=== PATIENT | male | born 1960 | race Asian ===

== ENCOUNTER 2017-09-14 06:57 | Observation (INO) | payer MEDICARE, OTHER ==
[2017-09-14 08:23] LABS: ADD MAN DIFF? NO
[2017-09-14 08:28] LABS: BASOPHILS % 0.4 % (0.0-2.0); EOSINOPHILS # 0.2 10^3/ul (0.0-0.5); EOSINOPHILS % 2.5 % (0.0-7.0); HEMATOCRIT 35.2 % (42.0-52.0); HEMOGLOBIN 11.8 g/dl (14.0-18.0); LYMPHOCYTES # 1.5 10^3/ul (0.8-2.9); LYMPHOCYTES % 21.3 % (15.0-51.0); MEAN CORPUSCULAR HEMOGLOBIN 28.9 pg (29.0-33.0); MEAN CORPUSCULAR HGB CONC 33.5 g/dl (32.0-37.0); MEAN CORPUSCULAR VOLUME 86.1 fl (82.0-101.0); MEAN PLATELET VOLUME 9.5 fl (7.4-10.4); MONOCYTE # 0.7 10^3/ul (0.3-0.9); MONOCYTES % 10.6 % (0.0-11.0); NEUTROPHIL # 4.5 10^3/ul (1.6-7.5); NEUTROPHILS % 64.8 % (39.0-77.0); PLATELET COUNT 186 10^3/UL (140-415); RED BLOOD COUNT 4.09 10^6/ul (4.70-6.10); RED CELL DISTRIBUTION WIDTH 14.2 % (11.5-14.5)
[2017-09-14 08:28] LABS: WHITE BLOOD COUNT 6.9 10^3/ul (4.8-10.8)
[2017-09-14 08:44] LABS: ANION GAP 15 (8-16); CARBON DIOXIDE 34 mmol/L (21-31); CHLORIDE 98 mmol/L (97-110); GLUCOSE 86 mg/dl (70-220)
[2017-09-14 08:46] LABS: BLOOD UREA NITROGEN 22 mg/dl (7-20); CALCIUM 9.3 mg/dl (8.4-10.2); CREATININE 4.43 mg/dl (0.61-1.24); POTASSIUM 4.7 mmol/L (3.5-5.1); SODIUM 142 mmol/L (135-144)
[2017-09-14] MEDS ORDERED: MIDAZOLAM 1 MG/ML 2 ML INJ (09:17)
[2017-09-14] MEDS ORDERED: FENTAnyl 50 MCG/ML VIAL (09:17)
[2017-09-14] MEDS ORDERED: VERAPAMIL 5 MG INJ (09:22)
[2017-09-14] MEDS ORDERED: NITROGLYCERIN (IC) 100 MCG/ML INJ ×2 (09:22→10:26)
[2017-09-14] MEDS ORDERED: HEPARIN 1000 UNITS/ML 10 ML INJ (09:22)
[2017-09-14] MEDS ORDERED: LIDOCAINE 1% (MDV) 20 ML INJ (09:22)
[2017-09-14 09:45] LABS: INR 0.93; PROTIME 12.6 Sec (11.9-14.9)
[2017-09-14 09:46] LABS: PARTIAL THROMBOPLASTIN TIME 33.1 Sec (25.0-35.0)
[2017-09-14] MEDS ORDERED: ASPIRIN 325 MG TAB (09:49)
[2017-09-14] MEDS ORDERED: CLOPIDOGREL 300 MG TAB (09:49)
[2017-09-14] MEDS ORDERED: IOHEXOL 350MG/ML 50 ML BTL (10:41)
[2017-09-14] MEDS ORDERED: IODIXANOL LOCM 100 ML BTL (10:41)
[2017-09-14] MEDS ORDERED: AL HYDROX/MG HYDROX/SIMETH 30 ML CUP PO (11:00)
[2017-09-14] MEDS ORDERED: ACETAMINOPHEN 325 MG TAB PO (11:00)
[2017-09-14] MEDS ORDERED: OXYCODONE/ACETAMINOPHEN (5/325) TAB PO (11:00)
[2017-09-14] MEDS ORDERED: ONDANSETRON 4 MG INJ IV (11:00)
[2017-09-15] MEDS ORDERED: ASPIRIN (EC) 81 MG TAB PO (09:00)
[2017-09-15] MEDS ORDERED: CLOPIDOGREL 75 MG TAB PO (09:00)
== END 2017-09-14 23:28 | disposition home or self-care (01) ==
LOC: SDS 06:57 → ICU 11:25 → SDS 11:09 → REC 11:09 → ICU 11:25
DX: Z01.818 Encounter for other preprocedural examination (principal); I10 Essential (primary) hypertension; E78.00 Pure hypercholesterolemia, unspecified; E11.9 Type 2 diabetes mellitus without complications; Z79.4 Long term (current) use of insulin
CPT/HCPCS: 80048; 82962; 85025; 85610; 85730; 87081; 93005; 93458; 99217

== ENCOUNTER 2018-09-18 13:54 | Day surgery (SDC) | payer MEDICARE, OTHER ==
[2018-09-18 14:40] LABS: ADD MAN DIFF? NO
[2018-09-18 14:42] LABS: WHITE BLOOD COUNT 6.8 10^3/ul (4.8-10.8)
[2018-09-18 14:42] LABS: BASOPHILS % 0.4 % (0.0-2.0); EOSINOPHILS # 0.2 10^3/ul (0.0-0.5); EOSINOPHILS % 2.8 % (0.0-7.0); HEMATOCRIT 41.9 % (42.0-52.0); HEMOGLOBIN 14.1 g/dl (14.0-18.0); LYMPHOCYTES # 2.2 10^3/ul (0.8-2.9); LYMPHOCYTES % 32.4 % (15.0-51.0); MEAN CORPUSCULAR HEMOGLOBIN 31.7 pg (29.0-33.0); MEAN CORPUSCULAR HGB CONC 33.7 g/dl (32.0-37.0); MEAN CORPUSCULAR VOLUME 94.2 fl (82.0-101.0); MONOCYTE # 0.4 10^3/ul (0.3-0.9); NEUTROPHILS % 58.1 % (39.0-77.0); PLATELET COUNT 189 10^3/UL (140-415); RED BLOOD COUNT 4.45 10^6/ul (4.70-6.10); RED CELL DISTRIBUTION WIDTH 12.3 % (11.5-14.5)
[2018-09-18 14:51] LABS: ADD UMIC YES; UR ASCORBIC ACID NEGATIVE (NEGATIVE); UR BILIRUBIN (Dip) NEGATIVE (NEGATIVE); UR BLOOD (Dip) 1+ mg/dL (NEGATIVE); UR CLARITY CLEAR (CLEAR); UR COLOR YELLOW (YELLOW); UR GLUCOSE (Dip) 1+ mg/dL (NEGATIVE); UR KETONES (Dip) NEGATIVE (NEGATIVE); UR LEUKOCYTE ESTERASE (Dip) NEGATIVE Leu/ul (NEGATIVE); UR NITRITE (Dip) NEGATIVE (NEGATIVE); UR RBC 0 /HPF (0-5); UR SPECIFIC GRAVITY (Dip) 1.006 (1.003-1.030); UR TOTAL PROTEIN (Dip) 2+ mg/dl (NEGATIVE); UR UROBILINOGEN (Dip) NEGATIVE (NEGATIVE); UR WBC 1 /HPF (0-5)
[2018-09-18 14:59] LABS: ALANINE AMINOTRANSFERASE 22 IU/L (13-69); ALBUMIN 4.9 g/dl (3.3-4.9); ALBUMIN/GLOBULIN RATIO 1.28; ALKALINE PHOSPHATASE 92 IU/L (42-121); ANION GAP 19 (5-13); ASPARTATE AMINO TRANSFERASE 26 IU/L (15-46); BILIRUBIN,INDIRECT 0.1 mg/dl (0-1.1); BILIRUBIN,TOTAL 0.1 mg/dl (0.2-1.3); CALCIUM 9.9 mg/dl (8.4-10.2); CARBON DIOXIDE 34 mmol/L (21-31); CHLORIDE 87 mmol/L (97-110); Estimated GFR 8 mL/min (>60); GLUCOSE 90 mg/dl (70-220); SODIUM 140 mmol/L (135-144); TOTAL PROTEIN 8.7 g/dl (6.1-8.1)
[2018-09-18 15:01] LABS: INR 0.92; PROTIME 12.5 Sec (11.9-14.9)
[2018-09-18 15:02] LABS: PARTIAL THROMBOPLASTIN TIME 30.9 Sec (23.0-35.0)
[2018-09-18 15:09] LABS: BLOOD UREA NITROGEN 25 mg/dl (7-20); POTASSIUM 5.5 mmol/L (3.5-5.1)
[2018-09-18 15:12] LABS: CREATININE 7.39 mg/dl (0.61-1.24)
== END 2018-09-18 16:16 | disposition home or self-care (01) ==
LOC: SDS 13:54
DX: I73.9 Peripheral vascular disease, unspecified (principal); Z53.8 Procedure and treatment not carried out for other reasons
CPT/HCPCS: 71045; 80053; 81001; 82962; 85025; 85610; 85730; 93005